=== PATIENT | male | born 1960 | race Caucasian/White ===

== ENCOUNTER 2019-02-24 22:33 | Emergency (ER) | payer SELFPAY ==
[~2019-02-24] VITALS: Ht 180.3 cm; Wt 104.3 kg
[2019-02-24] MEDS ORDERED: cloNIDine HCL 0.1 MG TAB PO ONE (23:00)
[2019-02-25 00:35] VITALS: BP 171/107
== END 2019-02-25 02:26 | disposition left against medical advice (07) ==
LOC: ER 22:38
DX: N50.819 Testicular pain, unspecified (principal); Z53.21 Procedure and treatment not carried out due to patient leaving prior to being seen by health care provider